=== PATIENT | male | born 1955 | race African-American/Black ===

== ENCOUNTER 2018-04-22 21:36 | Emergency (ER) | payer MEDICARE, MEDICAID ==
[~2018-04-22] VITALS: Ht 162.6 cm; Wt 64.0 kg
[~2018-04-22 21:36] MED LIST: ACET-3161; AMLO5TAB88; BENZ2TAB7; CALC500T62; DICY20TA11 PO; FENT1PAT4 TD; FLUO20CA33; FLUT10SP BOTHNSTRLS; HYDR12.529 PO; HYDR8TAB43 PO; LORA0.5T2 PO; LUBI8CAP; MECL-127; POTA10CA42 PO; PROT40; RISP2; SIMV20TA6; SUCR1TAB30 PO
[2018-04-22 23:40] VITALS: BP 129/88
== END 2018-04-23 02:40 | disposition home or self-care (01) ==
LOC: ER 21:36
DX: S09.8XXA Other specified injuries of head, initial encounter (principal); S80.211A Abrasion, right knee, initial encounter; K21.9 Gastro-esophageal reflux disease without esophagitis; E78.00 Pure hypercholesterolemia, unspecified; I10 Essential (primary) hypertension; Z86.69 Personal history of other diseases of the nervous system and sense organs; Z79.899 Other long term (current) drug therapy; W10.8XXA Fall (on) (from) other stairs and steps, initial encounter; Y93.89 Activity, other specified; Y92.89 Other specified places as the place of occurrence of the external cause; Y99.8 Other external cause status
CPT/HCPCS: 99283

== ENCOUNTER → 2021-02-24 | Outpatient (CLI) | payer MEDICARE, MEDICAID ==
[~2021-02-24] MED LIST changes: -HYDR8TAB43 PO; +HYDR8TAB44 PO; +SIMV-43; -SIMV20TA6
== END | disposition home or self-care (01) ==
LOC: NM 08:38
PROVIDERS: ATTEND Internal Medicine Endocrinology, Diabetes & Metabolism
DX: E04.9 Nontoxic goiter, unspecified (principal); E05.90 Thyrotoxicosis, unspecified without thyrotoxic crisis or storm
CPT/HCPCS: 78014; A9516

== ENCOUNTER → 2021-05-15 | Outpatient (CLI) | payer MEDICARE, MEDICAID | END | disposition home or self-care (01) | LOC: CT 12:45 | PROVIDERS: ATTEND Family Medicine Adult Medicine | DX: R13.10 Dysphagia, unspecified (principal); M47.812 Spondylosis without myelopathy or radiculopathy, cervical region; M40.292 Other kyphosis, cervical region | CPT/HCPCS: 70490 ==